=== PATIENT | female | born 1965 | race Caucasian/White ===

== ENCOUNTER 2024-03-14 07:40 | Outpatient (CLI) | payer BC, OTHER | END 2024-03-14 23:59 | disposition home or self-care (01) | LOC: MRI 07:40 | PROVIDERS: ATTEND Family Medicine Sports Medicine | DX: M75.52 Bursitis of left shoulder (principal); M75.112 Incomplete rotator cuff tear or rupture of left shoulder, not specified as traumatic | CPT/HCPCS: 73221 ==